=== PATIENT | male | born 1995 ===

== ENCOUNTER 2017-05-07 18:25 | Emergency (ER) | payer BC ==
[2017-05-07 18:31] VITALS: BP 141/123
[2017-05-07] MEDS ORDERED: FEXO1TAB63 PO (18:39)
--- NOTE | 2017-05-07 18:47 | ER Report ---
History and Physical Time Seen By MD: 18:36 Hx. of Stated Complaint: patient was walking down steps and scraped left top side of head on an over hang; patient states he did not lose conscience; bleeding to head has stopped but states that he is dizzy and light headed. HPI/ROS Chief concern: hit head on concrete overhang HPI: 21 year old male presents with reports of hitting head on a concrete overhang. States he was walking down a flight of stairs, jumped down the last few steps, and hit his head. Reports lightheadedness and dizziness. Denies any loss of consciousness, nausea/vomiting, vision changes, slurred speech, memory loss, incoordination. Review of Systems Head: Reports he hit top of head on concrete overhang with profuse bleeding. Cardiac: Denies chest pain GI: Denies nausea, vomiting. Neuro: Reports dizziness and lightheadedness. Denies loss of consciousness, vision changes, nausea/vomiting, slurred speech, memory loss, lack of coordination, or seizures. Allergies: Coded Allergies: Sulfa (Sulfonamide Antibiotics) (Verified Allergy, Intermediate, HIVES, ) Home Meds Reported Medications Fexofenadine Hcl/Pseudoephedr (DONELL-D 24 HOUR TABLET) 1 Each Tabsr, 1 TAB PO QDAY 05/07/17 Past Medical/Surgical History Patient has a past medical history of right finger fracture, alcohol use. Patient has a surgical history of tonsillectomy. Unable To Obtain Past Medical: Unable to Obtain/Update Reviewed Nurses Notes: Yes Old Medical Records Reviewed: No Smoking Status: Never Smoker Hx Substance Use Disorder: No Hx Alcohol Use: Yes (occ) Constitutional Vital Sign - Last 24 Hours 05/07/17 18:31 Temp 97.3 Pulse 74 Resp 18 B/P (MAP) 141/123 Pulse Ox 97 O2 Delivery Room Air Physical Exam Physical exam: General: AOx3, responds appropriately with appropriate affect and articulation. Head: Laceration to left crown of head approximately 1cm in length and 2-3mm in depth, with minor amount of residual bleeding and tenderness to palpation. Eyes: PERRLA, EOMI no nystagmus Respiratory: clear to auscultation bilaterally Cardiac: regular rate and rhythm GI: bowel sounds present all quadrants nontender to palpation. Neuro: Cranial nerves II-XII grossly intact. Patient recalled 3/3 words easily. Touch sensation intact upper extremities, FROM and strength 5/5 all extremities. After thorough HPI and review of systems, the following differential diagnoses were considered: scalp laceration, concussion, skull fracture, intracranial bleed. Medical Decision Making EKG/Imaging Imaging EXAMINATION: CT HEAD WITHOUT CONTRAST COMPARISON: None available HISTORY: hit head on concrete PROCEDURE: Noncontrast CT from the vertex through the skull base. One of the following dose optimization techniques was utilized in the performance of this exam: Automated exposure control; adjustment of the mA and/or kV according to the patient's size; or use of an iterative reconstruction technique. Specific details can be referenced in the facility's radiology CT exam operational policy. FINDINGS: Brain volume: Age-appropriate. Hemorrhage/extra-axial fluid: None. Mass effect/midline shift/edema: None. Ischemia: Lipscomb-white differentiation is preserved. Ventricles and basal cisterns: Within normal limits. Posterior fossa: Negative. Vessels: Negative. Calvarium, skull base, and scalp: Left parietal scalp laceration near the vertex. No radiopaque foreign body. No fracture. Visualized sinuses and orbits: Within normal limits. IMPRESSION: 1. Left parietal scalp laceration near the vertex. 2. No evidence of acute intracranial trauma. Report Dictated By: Johnie Bacon MD at 05/07/2017 7:43 PM Report E-Signed By: Johnie Bacon MD at 05/07/2017 7:48 PM ED Course/Re-evaluation ED Course Patient was admitted to exam room, history and physical were obtained. Differential diagnoses were considered. I examination patient was alert and oriented 4, no neurologic deficits. Patient did have a one similar laceration to the top of the head. There was no bleeding at this time. The wound was anesthetized, cleaned and repaired described below. Patient did have a CT scan of the head which was negative. We discussed the findings with the patient. We will go ahead and discharge him home. He will be given instructions to take care of the wound as well as instructions for his concussion. He is to have progressed, get plenty of fluids. He is to limit his TV and computer time. He is to follow-up with his primary care provider, [facility], in the next week. He is to have the aureliano removed by [facility] in the next 5-7 days. We discussed this with the patient who verbalized understanding and agreement with plan. Procedure: Laceration repair. Verbal consent was obtained from the patient. The 1 cm laceration on the top of the scalp was anesthetized in the usual fashion. The wound was scrubbed, draped and explored to its base with a gloved finger. There were no deep structures involved. The wound was repaired with 3 aureliano. The wound repair was simple. The procedure was performed by myself. Decision to Disposition Date: May 07, 2017 Decision to Disposition Time: 20:12 Depart Departure Latest Vital Signs Vital Signs Date Time Temp Pulse Resp B/P (MAP) Pulse Ox O2 Delivery O2 Flow Rate FiO2 05/07/17 18:31 97.3 74 18 141/123 97 Room Air Impression: Primary Impression: Laceration of scalp Additional Impression: Concussion Condition: Improved Disposition: HOME OR SELF-CARE Patient Instructions: Laceration (ED) Additional Instructions: Keep wound dry for 48 hours. Follow up with your primary care provider in the next 5-7 days to have aureliano removed. Monitor for signs of infection; redness, swelling, heat, discharge, increasing pain or red streaking. Take Tylenol or Ibuprofen as needed for pain. Return to the ER with any concerns. Get plenty of rest. Limit activity by pain. Limit TV and computer time. Monitor for confusion, increased irritability, uncontrollable vomiting, worsening headache or difficulty to arouse. Return to the ER if those are to occur. Follow up with your primary care provider in the next week. Problem Qualifiers Primary Impression: Laceration of scalp Encounter type: initial encounter Qualified Codes: S01.01XA - Laceration without foreign body of scalp, initial encounter Additional Impression: Concussion Encounter type: initial encounter Loss of consciousness presence/duration: without LOC Qualified Codes: S06.0X0A - Concussion without loss of consciousness, initial encounter DOROTA ELDER May 07, 2017 18:47
[2017-05-07] MEDS ORDERED: LIDO/EPI 1% MDV 1:100,000 20ML INFIL ONE (19:04)
--- NOTE | 2017-05-07 19:53 | RADIOLOGY IMAGING REPORT ---
FACILITY: [facility] - [place] PATIENT NAME: Marcial Echols : 1995 MR: [id number] V: [id number] EXAM DATE: ORDERING PHYSICIAN: DOROTA ELDER TECHNOLOGIST: Location: [facility] - [place], [place] Patient: Marcial Echols : 1995 Visit/Account:[id number] Date of Sevice: 05/07/2017 EXAMINATION: CT HEAD WITHOUT CONTRAST COMPARISON: None available HISTORY: hit head on concrete PROCEDURE: Noncontrast CT from the vertex through the skull base. One of the following dose optimizat ion techniques was utilized in the performance of this exam: Automated exposure control; adjustment o f the mA and/or kV according to the patient's size; or use of an iterative reconstruction technique. Specific details can be referenced in the facility's radiology CT exam operational policy. FINDINGS: Brain volume: Age-appropriate. Hemorrhage/extra-axial fluid: None. Mass effect/midline shift/edema: None. Ischemia: Lipscomb-white differentiation is preserved. Ventricles and basal cisterns: Within normal limits. Posterior fossa: Negative. Vessels: Negative. Calvarium, skull base, and scalp: Left parietal scalp laceration near the vertex. No radiopaque forei gn body. No fracture. Visualized sinuses and orbits: Within normal limits. IMPRESSION: 1. Left parietal scalp laceration near the vertex. 2. No evidence of acute intracranial trauma. Report Dictated By: Johnie Bacon MD at 05/07/2017 7:43 PM Report E-Signed By: Johnie Bacon MD at 05/07/2017 7:48 PM WSN:[id number]
== END 2017-05-07 20:21 | disposition home or self-care (01) ==
LOC: ER 18:32
DX: S01.01XA Laceration without foreign body of scalp, initial encounter (principal); W26.9XXA Contact with unspecified sharp object(s), initial encounter; S06.0X0A Concussion without loss of consciousness, initial encounter
CPT/HCPCS: 70450; 99283